=== PATIENT | female | born 1980 | race Two or more races ===

== ENCOUNTER 2024-12-14 08:19 | Emergency (ER) | payer OTHER, MEDICAID, SELFPAY ==
[2024-12-14 08:30] VITALS: BP 154/92; PULSE 77; RESP 16; TEMP 36.8; O2SAT 97
--- NOTE | 2024-12-14 09:03 | XR_ITS ---
Examination: CT brain head without contrast. 2-D sagittal coronal reconstructions Date and time of exam:December 14, 2024, 0926 hours INDICATIONS: Sudden onset dizziness beginning this morning CTDI: vol (mGy):54.8 DLP: (mGycm):1117 Technique: Multiple CT axial sections of the brain have been obtained, 5 mm slice thickness. Contrast has not been administered. 2-D sagittal, coronal reconstructions have been obtained Low dose protocols were performed. One or more of the following dose reduction techniques were used; automated exposure control, adjustment of the mA and/or KV according to patient size, use of iterative reconstruction technique. Findings: No significant ventricular enlargement. Intra-axial or extra-axial hemorrhage density is not seen. No mass effect or midline shift Basal cisterns are not remarkable. Fourth ventricle is midline. Cranial vault intact. Impression: Negative for acute hemorrhage, mass effect or midline shift Advise clinical correlation follow-up accordingly
--- NOTE | 2024-12-14 09:09 | EDNOTE_ITS ---
ED Dizzyness RME/HPI General Chief Complaint: Dizziness Stated Complaint: EVERYTHING IS SPINNING , N/V Time Seen by Provider: 12/14/24 09:01 Arrival date/time: 12/14/24 08:19 Limitations: no limitations RME / HPI RME / HPI Narrative: Patient is a 44-year-old female with medical history notable for anxiety presenting with department concerns for feeling dizzy. Patient states that this morning she woke up and felt that the room was spinning. This has happened to her 1 time in the past. Denies any fevers chills nausea vomiting cough runny nose chest pain abdominal pain dysuria hematuria melena bloody stools. Patient does endorse nausea. Denies any head trauma. Patient is not taking any medications. Patient has not taken any medication for anxiety for a long time. No drugs no alcohol no smoking. Related Data Home Medications ?Medication ?Instructions ?Recorded ?Confirmed prenat.vits,negra,xjn-pjrx-havcy 1 tab PO QDAY 03/04/20 03/04/20 Previous Rx's ?Medication ?Instructions ?Recorded ibuprofen 600 mg tablet 600 mg PO Q8H PRN pain #30 t abs 03/07/20 cephalexin 500 mg capsule 500 mg PO QID #20 caps 12/14 Allergies Allergy/AdvReac Type Severity Reaction Status Date / Time No Known Allergies Allergy Verified 12/14/24 08:21 Review of Systems Review of Systems Systems Reviewed: All systems reviewed, normal except as documented Past Medical History Past Medical History REPRODUCTIVE: Positive Previous Pregnancies ENDOCRINE: Positive Endocrine Disorders PSYCHO/SOCIAL: Positive Depression and Anxiety OTHER HISTORY: Positive Hospitalization (CHILDBIRTH) and Chicken Pox Family History FAMILY HISTORY: Positive Family Psychiatric Problems (MATERNAL), Family Cardiac Disorders (HTN), Family Cancer (BREAST) and Family Surgery Surgical History SURGICAL: Positive Oral Surgery (MOLARS) Social History SMOKING STATUS: Former smoker SECOND HAND EXPOSURE: No ED Exam General Limitations: Present no limitations General appearance: Present alert and in no apparent distress Head Head exam: Present atraumatic and normocephalic Eye Eye exam: Present normal appearance, PERRL and EOMI; Absent scleral icterus or conjunctival injection ENT ENT exam: Present normal exam, normal oropharynx and mucous membranes moist Neck Neck exam: Present normal inspection and full ROM Chest Chest inspection: Present normal inspection and symmetric chest wall rise Respiratory Respiratory exam: Present normal lung sounds bilaterally; Absent respiratory distress, wheezes or stridor Cardiovascular Cardiovascular exam: Present regular rate and normal rhythm Abdominal Exam Abdominal exam: Present soft; Absent distention, tenderness, guarding or rebound Extremities Exam Extremities exam: Present normal inspection and full ROM Neurological Exam Neurological exam: Present alert, oriented X3, CN II-XII intact, normal gait and other (Intact finger-nose, intact jqby-sp-celb, visual maurice intact, no rotary nystagmus, patient able to stand on 1 foot); Absent motor sensory deficit Psychiatric Psychiatric exam: Present normal affect Course Quality Measures none Orders Category Date Time Status IV [Insert IV] NOW Care 12/14/24 09:[address] head/brain wo con Stat Exams 12/14/24 09:03 Completed CBC Stat Lab 12/14/24 09:51 Completed CMP [Comprehensive Metabolic Panel] Stat Lab 12/14/24 09:51 Completed Drug Screen,Urine Stat Lab 12/14/24 10:40 Completed HCG,Qualitative Serum Stat Lab 12/14/24 09:51 Completed PT [Prothrombin Time with INR] Stat Lab 12/14/24 09:51 Completed UA, C/S IF [Urinalysis, C/S if Indicated] Stat Lab 12/14/24 10:40 Completed Urine Culture Stat Lab 12/14/24 10:40 Completed Metoclopramide Inj [Reglan Inj] Med 12/14/24 09:03 Discontinued 5 mg IV STAT STA Ringers Lactated 1000 ml [Lactated Ringers] 1,000 ml Med 12/14/24 09:08 Discontinued IV 999 mls/hr cefTRIAXone/D5w 1gm IV premix [Rocephin/D5w 1gm IV Med 12/14/24 13:04 Discontinued premix] 1 gm in 50 ml IV STAT Vital Signs Vital signs: Vital Signs Temperature 98.2 F 12/14/24 08:30 Pulse Rate 77 12/14/24 08:30 Respiratory Rate 16 12/14/24 08:30 Blood Pressure 154/92 H 12/14/24 08:30 Pulse Oximetry (%) 97 12/14/24 08:30 Oxygen Delivery Method Room Air 12/14/24 08:30 Pulse ox is 97% on room air which is adequate. Dizziness MDM Narrative MDM Narrative:: Patient is a 44-year-old female senting with concerns for dizziness. Vital signs and exam as listed. Concern for vertigo, dehydration, metabolic disturbance. Patient without any focal neurodeficits, no urinary nystagmus, less likely acute intracranial injury. This feels like her prior episode of vertigo. Will order a CT scan also to assess for acute intracranial hemorrhage. Offered medication for symptom relief. CT brain unremarkable. Labs without any acute hematologic or significant metabolic abnormality. Patient is not . Urinalysis with 17 whites rare bacteria positive for leuk esterase will treat for urinary tract infection. On re-eval patient symptoms resolved, will dc to home with close return precautions and recommendation for follow up with pcp and neurology. Patient data External records reviewed:: [facility] previous records Clinical information provided by:: patient Social determinants that could affect healthcare access:: none Patient has the following chronic illnesses:: None reported How is presenting disease/condition affected by chronic disease/condition?: no chronic disease Evaluation data The following diagnostics were reviewed and interpreted by me:: lab results and radiology exam(s) Lab and/or radiology exams considered but not ordered:: None Interpretation Summary: See [facility] Medications / Prescriptions Medications or Prescriptions considered but not ordered:: None Medication administrations:: Medication Administration History Discontinued Medications Lactated Ringer's (Lactated Ringers) 1,000 mls @ 999 mls/hr IV .Q1H1M ONE Stop: 12/14/24 10:08 Last Infusion: 12/14/24 11:00 Dose: Infused Documented By: Admin: 12/14/24 09:45 Dose: 999 mls/hr Documented By: DO Ceftriaxone Sodium/Dextrose (Rocephin/D5w 1gm Iv Premix) 1 gm in 50 mls @ 100 mls/hr IV STAT STA Stop: 12/14/24 13:33 Last Infusion: 12/14/24 15:20 Dose: Infused Documented By: Admin: 12/14/24 13:46 Dose: 100 mls/hr Documented By: DO Metoclopramide HCl (Metoclopramide Inj 5 Mg/Ml Vial 2 Ml) 5 mg IV STAT STA; Protocol Stop: 12/14/24 09:04 Last Admin: 12/14/24 09:45 Dose: 5 mg Documented By: DO See above Consultations Consultation(s) initiated? (list below): No Diagnosis Most likely diagnosis given after review of the tests above:: UTI Vertigo Admission Indicated Admission indicated?: not indicated Admission Request Was there a request for admission?: No Disposition Plan Disposition Plan: Discharge Discharge Attestation Discharge Attestation: The patient and all family members were given an opportunity to ask questions and understood the discharge instructions. Discharge instructions specifically effects, indications for sooner follow up or return to the emergency department, and the expected course of current diagnosis. Patient condition: Stable Discharge Plan Plan Patient Disposition: HOME (Self Care) Prescriptions/Referrals Prescriptions/Med Rec: New cephalexin 500 mg capsule 500 mg PO QID Qty: 20 0RF No Action prenat.vits,negra,lha-szht-xycrl Tablet 1 tab PO QDAY ibuprofen 600 mg tablet 600 mg PO Q8H PRN (Reason: pain) Qty: 30 0RF Referrals: No Primary/Family,Physician [Primary Care Provider] - In 1 week Problem List Clinical Impression: Urinary tract infection, Vertigo Patient/Caregiver Discharge Instructions Education Materials: Understanding Urinary Tract ... Additional Instructions: Follow-up with your primary care doctor in 3 to 5 days for recheck. You can return to the emergency department sooner if symptoms worsen or if you notice any new, concerning issues. Please establish care with a neurologist to establish care this week. Print Language: Greek Stand Alone Forms: Janeen Award Info., Work/School Release, Patient Portal Info Letter
--- NOTE | 2024-12-14 09:21 | PC.NURSE ---
pt to ct
[2024-12-14] MEDS: RINGERS LACTATED 1000 ML 1,000 ML 999 ML IV (09:45)
[2024-12-14] MEDS: METOCLOPRAMIDE INJ 5 MG/ML VIAL 2 ML IV (09:45)
[2024-12-14 09:59] LABS: Basophils # (Auto) 0.0 Thou/mm3 (0.0-0.2); Basophils % (Auto) 0 % (0-2.5); Eosinophils # (Auto) 0.2 Thou/mm3 (0.0-0.5); Eosinophils % (Auto) 3 % (0-10); Hematocrit 36.2 % (36.0-46.0); Hemoglobin 12.1 g/dL (12.0-16.0); Immature Granulocytes Auto 0.02 Thou/mm3 (0.00-0.00); Lymphocytes # (Auto) 1.3 Thou/mm3 (1.0-4.8); Lymphocytes % (Auto) 24 % (10-50); Mean Corpuscular HGB Conc 33.4 g/dl (31.0-37.0); Mean Corpuscular Hemoglobin 28.3 pg (25.0-35.0); Mean Corpuscular Volume 85 fL (80-100); Monocytes # (Auto) 0.6 Thou/mm3 (0.0-0.8); Monocytes % (Auto) 10 % (0-12); Neutrophils # (Auto) 3.5 Thou/mm3 (1.8-7.7); Neutrophils % (Auto) 62 % (37-80); Nucleated Red Blood Cell # 0.00 Thou/mm3 (0.00-0.00); Nucleated Red Blood Cell % 0 /100 WBC (0); Platelet Count 230 Thou/mm3 (140-440); RDW Standard Deviation 42.2 fL (36.4-46.3); Red Blood Count 4.28 Miln/mm3 (4.00-5.20); White Blood Count 5.6 Thou/mm3 (3.6-11.0)
[2024-12-14 10:07] LABS: INR 1.0 (0.9-1.3); Prothrombin Time 10.6 Seconds (9.0-12.2)
[2024-12-14 10:09] LABS: HCG,Qualitative Serum Negative
[2024-12-14 10:14] LABS: Alanine Aminotransferase 12 U/L (10-49); Albumin, Serum 4.1 gm/dL (3.5-5.0); Albumin/Globulin Ratio 1.9 (1.2-2.2); Alkaline Phosphatase 83 U/L (46-116); Anion Gap 8 (7-16); Aspartate Amino Transferase 14 U/L (0-34); BUN/Creatinine Ratio 16 Ratio (12-20); Bilirubin,Total 0.3 mg/dL (0.3-1.2); Blood Urea Nitrogen 11 mg/dL (9-23); Calcium 9.2 mg/dL (8.3-10.6); Calcium (Corrected) 9.2 mg/dL (8.5-10.1); Carbon Dioxide 28.1 mMol/L (20.0-31.0); Chloride 107 mMol/L (98-107); Creatinine (Component) 0.7 mg/dL (0.6-1.3); Estimated Creatinine Clearance 137.6 mL/min (>60); Globulin 2.2 gm/dL (2.3-3.5); Glucose 102 mg/dL (74-106); Osmolality,Calculated 284 (275-295); Potassium 3.7 mMol/L (3.4-5.1); Sodium 143 mMol/L (136-145); Total Protein 6.3 gm/dL (5.7-8.2); eGFR > 60 See Note
[2024-12-14 10:55] VITALS: BP 130/85; PULSE 71; RESP 16; TEMP 36.7; O2SAT 97
[2024-12-14 10:56] LABS: Collection Type, Urine Clean Catch
[2024-12-14 11:05] LABS: Bacteria,Urine Rare; Bilirubin,Urine Negative (Negative); Blood,Urine Negative (Negative); Clarity,Urine Clear (Clear/Hazy); Color,Urine Lt-Yellow (Lt Yel-Yel); Glucose, Urine Negative (Negative); Ketones,Urine Negative (Negative); Leukocyte Esterase,Urine Positive (Negative); Nitrite,Urine Negative (Negative); PH,Urine 6.0 (5.0-7.0); Protein,Urine Negative (Neg - Trace); RBC,Urine 3 /hpf (0-3); Specific Gravity,Urine 1.011 (1.001-1.035); Squamous Epithelial Cell,Urine 2 /hpf (0-5); Urobilinogen,Urine Negative mg/dL (0.0-1.0); WBC,Urine 17 /hpf (0-5)
[2024-12-14 11:09] LABS: Culture Indicated,Urine Yes
[2024-12-14 11:17] LABS: Amphetamine/Methamp Scrn,U Negative (Negative); Barbiturate Screen,Urine Negative (Negative); Benzodiazepines Screen,Urine Negative (Negative); Benzoylecgonine Screen, Ur Negative (Negative); Fentanyl Screen,Urine Negative (Negative); Opiate Screen,Urine Negative (Negative); THC Screen,Urine Negative (Negative)
[2024-12-14] MEDS: cefTRIAXone/D5w 1gm IV premix 1 GM/50 ML BAG IV (13:46)
[2024-12-14 15:20] VITALS: BP 145/89; PULSE 76; RESP 17; TEMP 36.6; O2SAT 98
== END 2024-12-14 15:33 | disposition home or self-care (01) ==
PROVIDERS: Emergency Provider Emergency Medicine
DX: N39.0 Urinary tract infection, site not specified (principal); R42 Dizziness and giddiness
CPT/HCPCS: 36415; 70450; 80053; 80307; 81001; 84703; 85025; 85610; 87086; 96361; 96365; 96366; 99284; J0696; J2765; J7120